=== PATIENT | female | born 1930 | race Caucasian/White ===

== ENCOUNTER → 2018-01-06 07:34 | Outpatient (CLI) | payer MEDICARE ==
[2015-12-23 14:37] VITALS: BMI 25.0
[~2018-01-06 07:34] MED LIST: ACIDOPHILUS LAC1 CAP PO; ALEVE220 MG PO; AMBIEN5 MG PO; BAYER CHEWABLE81 MG PO; CARDIZEM CD180 MG PO; CIPRO500 MG PO; ELIQUIS5 MG PO; FEXOFENADINE H180 MG PO; FLAGYL500 MG PO; HYDROCODON-ACE1 EAC7 PO; MUCINEX600 MG PO; MULTIPLE VITAMI1 TA1 PO; OSTEO BI-FLEX1 EAC1 PO; PERCOCET 5-3251 TAB PO; PLAVIX75 MG PO; PROBIOTIC1 EAC1 PO; TOPROL XL25 MG PO; ZESTORETIC 20-1 EACH PO; ZYRTEC10 MG PO
== END | disposition home or self-care (01) ==
LOC: D.CT 07:34
DX: R10.9 Unspecified abdominal pain (principal); R19.7 Diarrhea, unspecified; Z87.19 Personal history of other diseases of the digestive system; Z98.890 Other specified postprocedural states